=== PATIENT | male | born 1970 | race Caucasian/White ===

== ENCOUNTER 2022-10-14 12:22 | Observation (INO) ==
[2022-10-14 15:05] LABS: SARS COV-2 RNA RAPID NAAT NEGATIVE (NEGATIVE)
[2022-10-14 16:20] VITALS: BMI 30.7
[2022-10-14] MEDS ORDERED: ATROPINE SULFATE PFS IVP PRN (16:21)
[2022-10-14] MEDS ORDERED: TYLENOL PO PRN (16:21)
[2022-10-14] MEDS ORDERED: NITROSTAT SL PRN (16:21)
[2022-10-14] MEDS ORDERED: TORADOL IVP ONE ×2 (16:38→23:03)
[2022-10-14 17:20] LABS: BASOPHILS # (AUTO) 0.1 K/uL (0-0.2); BASOPHILS % (AUTO) 0.4 % (0.0-3.0); EOSINOPHILS # (AUTO) 0.1 K/ul (0.0-0.7); EOSINOPHILS % (AUTO) 0.4 % (0.0-7.0); HEMATOCRIT 37.7 % (42.0-52.0); HEMOGLOBIN 12.7 g/dl (14.0-18.0); IMMATURE GRANULOCYTE # (AUTO) 0.1 (0.0-1.0); IMMATURE GRANULOCYTE % (AUTO) 0.5 % (0.0-5.0); LYMPHOCYTES # (AUTO) 2.2 K/uL (0.60-3.4); LYMPHOCYTES % (AUTO) 14.2 (10.0-50.0); MEAN CORPUSCULAR HEMOGLOBIN 31.3 pg (27.0-31.0); MEAN CORPUSCULAR HGB CONC 33.7 (31.8-35.4); MEAN CORPUSCULAR VOLUME 92.9 fl (80.0-94.0); MONOCYTES # (AUTO) 1.5 K/uL (0.4-2.0); MONOCYTES % (AUTO) 9.5 (0-10); NEUTROPHILS # (AUTO) 11.5 K/ul (2.0-6.9); PLATELET COUNT 370 10^3/uL (140-440); RDW COEFFICIENT OF VARIATION 13.9 % (11.6-14.8); RED BLOOD COUNT 4.06 10^6/ul (4.70-6.10); WHITE BLOOD COUNT 15.33 K/ul (4.2-10.2)
[2022-10-14 17:27] LABS: ALANINE AMINOTRANSFERASE 140.3 U/L (0-50); ALBUMIN 4.41 g/dL (3.5-5.0); ALKALINE PHOSPHATASE 181.2 U/L (38-126); ASPARTATE AMINO TRANSFERASE 78.7 U/L (17-59); BILIRUBIN,TOTAL 0.54 mg/dL (0.2-1.3); BLOOD UREA NITROGEN 13.3 mg/dL (9-20); CHLORIDE 98.5 mmol/L (98-107); CREATINE KINASE 23.3 U/L (55-170); CREATININE 0.62 mg/dL (0.60-1.10); GLUCOSE 103.3 mg/dL (74-106); POTASSIUM 4.09 mmol/L (3.5-5.1); SODIUM 135.1 mmol/L (134.5-145); TOTAL PROTEIN 9.01 g/dL (6.3-8.2)
[2022-10-14 17:43] LABS: TROPONIN I < 0.012 ng/ml (0.0000-0.120)
[2022-10-14 18:45] LABS: ERYTHROCYTE SEDIMENTATION RATE 92 mm/hr (0-15)
--- NOTE | 2022-10-14 19:24 | CT ---
EXAM: CT ANGIOGRAM CHEST HISTORY: Chest pain, shortness of breath COMPARISON: None. FINDINGS: Axial CT angiogram images of the chest with Omnipaque IV contrast. Multiplanar and 3-D reformatted i mages. No thoracic aortic aneurysm or dissection. No PE to the segmental level. Limited evaluation of the subsegmental pulmonary arteries. No finding s of left ventricular strain. Moderate, loculated left pleural effusion with adjacent consolidation. There is and 8.3 x 2.8 cm loc ulated collection with enhancing rim concerning for abscess or empyema see sagittal image 57 and axia l image 82).. Mediastinal lymphadenopathy, possibly reactive. The heart is not enlarged. No pericardial effusion. IMPRESSION: No thoracic aortic aneurysm or dissection. No PE to the segmental level. Limited evaluation of the subsegmental branches. There is a moderate, loculated left pleural effusion with adjacent consolidation concerning for pneum onia. This includes an 8.3 x 2.8 cm loculated collection with an enhancing rim concerning for abscess or em pyema. Please see above description and image numbers. Additional findings as described. All CT scans are performed using dose optimization techniques as appropriate to the performed exam an d include at least one of the following: Automated exposure control, adjustment of the mA and/or kV according t o size, and the use of iterative reconstruction technique.
[2022-10-14 19:44] LABS: ABG O2 HGB 89.4 % (95-100); ABG PH 7.46 (7.35-7.45); BEecf 4.6 (-2.0-3.0); HCO3 28.4 (21-28); MetHb 0 (0-1.5); TCO2 29.6 (19-24); sO2 91.6 % (94-98); tHb 16.3 g/dl (11.7-17.4)
[2022-10-14] MEDS: NICODERM 14 MG TD SCH (21:02)
[2022-10-14 21:33] LABS: BILIRUBIN,URINE 1+ (NEGATIVE); CLARITY,URINE Clear (CLEAR); COLOR,URINE Yellow (YELLOW); GLUCOSE, URINE (UA) Negative (NEGATIVE); KETONES,URINE 1+ (NEGATIVE); LEUKOCYTE ESTERASE ,URINE Negative (NEGATIVE); NITRITE,URINE Negative (NEGATIVE); PH,URINE 5.5 (5-9); PROTEIN,URINE 1+ (NEGATIVE); URINE, BLOOD Negative (NEGATIVE); UROBILINOGEN,URINE 0.2 (0.2)
[2022-10-14 21:41] LABS: URINE RBC, MICROSCOPIC 0-2 (0-2)
[2022-10-14 21:42] LABS: BACTERIA,URINE 1+ (NOT PRESENT); MUCUS,URINE 4+ (NOT PRESENT)
[2022-10-14] MEDS ORDERED: ROCEPHIN 1 GM/50 ML D5W 1 GM/50 ML BAG IV ONE (23:14)
[2022-10-14] MEDS: DOXY-100 100 MG in SODIUM CHLORIDE 100ML 100 ML IV SCH (23:48)
[2022-10-15] MEDS ORDERED: ZOSYN 4.5 GM 4.5 GM in SODIUM CHLORIDE 100ML 100 ML IV SCH ×2
[2022-10-15 00:47] LABS: CREATINE KINASE 21.5 U/L (55-170)
[2022-10-15 01:01] LABS: TROPONIN I < 0.012 ng/ml (0.0000-0.120)
[2022-10-15 05:10] LABS: BASOPHILS % (AUTO) 0.2 % (0.0-3.0); EOSINOPHILS # (AUTO) 0.1 K/ul (0.0-0.7); EOSINOPHILS % (AUTO) 0.8 % (0.0-7.0); HEMOGLOBIN 12.1 g/dl (14.0-18.0); IMMATURE GRANULOCYTE % (AUTO) 0.3 % (0.0-5.0); LYMPHOCYTES # (AUTO) 1.6 K/uL (0.60-3.4); LYMPHOCYTES % (AUTO) 13.5 (10.0-50.0); MEAN CORPUSCULAR HEMOGLOBIN 31.6 pg (27.0-31.0); MEAN CORPUSCULAR HGB CONC 33.6 (31.8-35.4); MONOCYTES # (AUTO) 1.2 K/uL (0.4-2.0); MONOCYTES % (AUTO) 9.7 (0-10); NEUTROPHILS # (AUTO) 9.1 K/ul (2.0-6.9); NEUTROPHILS % (AUTO) 75.5 % (42.2-75.2); PLATELET COUNT 359 10^3/uL (140-440); RDW COEFFICIENT OF VARIATION 14.1 % (11.6-14.8); RED BLOOD COUNT 3.83 10^6/ul (4.70-6.10); WHITE BLOOD COUNT 12.12 K/ul (4.2-10.2)
[2022-10-15] MEDS: ZOSYN 4.5 GM 4.5 GM in SODIUM CHLORIDE 100ML 100 ML IV SCH ×2 (05:11→12:25)
[2022-10-15 05:14] LABS: ALANINE AMINOTRANSFERASE 136.4 U/L (0-50); ALBUMIN 3.81 g/dL (3.5-5.0); ALKALINE PHOSPHATASE 153.6 U/L (38-126); ASPARTATE AMINO TRANSFERASE 90.6 U/L (17-59); BILIRUBIN,TOTAL 0.54 mg/dL (0.2-1.3); BLOOD UREA NITROGEN 13.1 mg/dL (9-20); CALCIUM 9.26 mg/dL (8.4-10.2); CHLORIDE 102.6 mmol/L (98-107); CREATININE 0.51 mg/dL (0.60-1.10); GLUCOSE 116.8 mg/dL (74-106); POTASSIUM 4.25 mmol/L (3.5-5.1); SODIUM 136.1 mmol/L (134.5-145); TOTAL PROTEIN 7.94 g/dL (6.3-8.2)
[2022-10-15] MEDS ORDERED: OMEGA-3 FISH OIL PO SCH (09:00)
[2022-10-15] MEDS: DOXY-100 100 MG in SODIUM CHLORIDE 100ML 100 ML IV SCH (09:49)
[2022-10-15] MEDS: NICODERM 14 MG TD SCH (10:04)
[2022-10-15 10:24] VITALS: BP 127/82; TEMP 97.2
--- NOTE | 2022-10-15 11:16 | PN ---
DATE OF SERVICE: 10/14/22 - ADMIT NOTE SUBJECTIVE: The patient has pleuritic type of pain on the left side. Thorax seems to have come back. There was a request for antibiotics to be called in. Advised patient to come to the office to be checked out. The patient showed up on the morning on 10/14/22. The patient was seen and examined at that time. Complaint was left-sided posterior axillary area mid thoracic pain, more so on deep breathing, more like pleuritic pain. The patient also complained of running maybe a low grade fever starting at night. The patient had no nausea, no vomiting, no PND, no orthopnea, no exertional chest discomfort. No abdominal pain. The patient says his aches and pains are somewhat better. Joint pains are better. He feels tired and fatigued. Investigations done, lab test and at the time he was recorded to have abnormal liver profile and low testosterone level. PFT showed evidence of chronic lung disease and has history of alcohol abuse and heavy smoking. The patient has a history of left pleuritic type of pain with atelectasis on scan with a lung nodule at [facility]. CT of the abdomen showing left uterovesical junction, partial obstruction type of findings for which he was referred to urologist. PHYSICAL EXAMINATION: HEENT: Head normocephalic, atraumatic. Eyes: Extraocular muscles are intact. Pupils are equal, round and reactive to light and accommodation. Ears: No lesions. Nose appeared normal. Throat: No exudate or erythema. NECK: Supple. No JVD, no carotid bruit. No lymphadenopathy or thyromegaly. LUNGS: Decreased breath sounds but good air entry. Clear to auscultation. Percussion note normal. Chest symmetrical. HEART: S1, S2, no S3. Tachycardia. No murmur, no rub. No cyanosis or clubbing. No ascites. Pulses: Dorsalis pedis and posterior tibial pulses +1 to +2 bilaterally. ABDOMEN: Soft. Nontender. Bowel sounds active. No CVA tenderness. No mass felt. EXTREMITIES: No edema. Full range of motion of all extremities, equal. NEUROLOGIC: No focal deficit. Cranial nerves II through XII are grossly intact. No headache. No double vision. SKIN: Not dry. Intact. Turgor - normal. LYMPHATIC: No palpable lymph nodes/no lymphedema. MUSCULOSKELETAL: Normal joints with no swelling. Muscle tone is normal. ASSESSMENT: 1. Pleuritic type of pain. Mild cough with history of smoking with chronic lung disease. 2. History of atelectasis with left pleural effusion, small. 3. History of bronchitis and pleuritic pain nearly 4 to 5 weeks ago for which he was treated with antibiotics and steroids. 4. Alcoholic hepatitis with possibility of hepatic steatosis with fatty liver. 5. Abnormal left ureterovesical junction for which he was referred along with low testosterone level. He got a call from urologist but thought this was not emergent so did not make an appointment and he does not want to take any testosterone supplement and wants his low testosterone to be treated by natural means. 6. History is consistent with sleep apnea. 7. Dyslipidemia. PLAN: 1. Admit this patient for observation with routine telemetry orders which would include serial cardiac markers and serial EKGs with telemetry and oximetry monitoring. 2. Arterial blood gases. 3. Toradol 15 mg IV. 4. Sed rate and CRP. 5. CBC, CMP, sed rate, CRP, T4, TSH. 6. CT of the chest with CT angiogram. 7. Echocardiogram in the morning. 8. Stress echo for evaluation of chest pain and having multiple risk factors for coronary artery disease to rule out any significant coronary artery disease. 9. Lyme, Western Blot test. 10. Erlichia titers. 11. Blood cultures times two. 12. Urinanalysis and urine cultures. 13. Strongly advised to call urologist and make an appointment. 14. D. Dimer. ADDENDUM: The patient already has been referred to manufacturing process engineer for his generalized ache with joint pains, small joints, elevated sed rate and CRP noted as an outpatient nearly 10 days ago along with borderline rheumatoid factor. During this hospitalization, we are going to repeat Sed rate and CRP along with CHECO and rheumatoid factor. The patient is a full code. Counseling for smoking done. The patient already says he has stopped drinking and for the past 3 to 4 weeks he hasn't had any alcohol. The patient is . The patient did not have any rash for the past 6 to 8 weeks. Appetite has been fair. TIME SPENT: More than 35 minutes. Plan and coordination of the patient's care discussed in the presence of nurse. ZIGGY
--- NOTE | 2022-10-15 11:48 | DS ---
DATE OF SERVICE: 10/15/22 FINAL DIAGNOSIS: 1. LEFT LUNG LOCULATED PLEURAL EFFUSION, MODERATE AMOUNT WITH CONSOLIDATION CONCERNING FOR ABSCESS OR EMPHYEMA. 8.3 X 2.8 CM SIZE. 2. LEFT-SIDED PLEURITIC PAIN. 3. CHRONIC LUNG DISEASE WITH RESPIRATORY INSUFFICIENCY, HISTORY OF HEAVY SMOKING. 4. HISTORY OF ALCOHOL ABUSE WITH ABNORMAL LIVER PROFILE. 5. DYSLIPIDEMIA. 6. coronary CALCIFICATION NOTED ON CT SCAN OF CHEST. 7. HYPOGONADISM WITH LOW TESTOSTERONE LEVEL. 8. HISTORY OF JOINT PAINS SEEMS TO HAVE RESOLVED LATELY. 9. HISTORY CONSISTENT WITH SLEEP APNEA. DISCHARGE INSTRUCTIONS: Transferring to [facility], Dr. Montaño. MEDICATIONS AT TIME OF TRANSFER: Zosyn 4.5 gm q.6 Doxycycline 100 mg q.12 Toradol 15 mg q.12 for pleuritic pain Oxygen 2L/cannula/min LABS ON ADMISSION 10/14/22: WBC count 15,000, today is 12,000. Hemoglobin 12.7 with hematocrit of 92. ESR 92 normal up to 18. UA 1+ protein, 1+ ketone, 1+ bilirubin. 1+ bacteria. Creatinine 0.6, BUN 13. Lactic acid 1.00, T4, TSH normal. ALT, AST 140 and 78 respectively. Elevated alkaline phosphatase of 181. ABG: p02 59, pc02 40, pH 7.46 with 91% saturation. Procalcitonin 0.12 borderline elevation. Cardiac markers negative. D. dimer was 4,000. CT angiogram showed no evidence of pulmonary embolism but showed 8.3 x 2.8 cm loculated collection of fluid within the left lung with enhancing rim concerning for abscess and empyema. EKG sinus rhythm. No acute changes. CT scan of the abdomen and pelvis with contrast pending. HOSPITAL COURSE: 52-year-old white male seen in the office with left-sided pleuritic type of pain, low grade fever and sweats at the night for the past 7 to 10 days feeling weak and tired. The patient had lab tests done one week ago which had shown abnormal liver profile likely from alcohol abuse with fatty liver with hepatic steatosis likely and elevated WBC count at the time. The patient had some left- sided pleuritic pain which had practically subsided from what he had had a month ago with bronchitis and left pleuritic pain and was treated at [facility] with CT scan showing small left-sided pleural effusion with atelectasis. In any case, with continued left pleuritic pain, in fact, increasing in intensity with having sweats, he was asked to be hospitalized to which he agreed. CT scan of the chest with CT angiogram as D. dimer was more than 4,000. The patient was ruled out to have pulmonary embolism. CT scan showed possibility of empyema with evidence of consolidation and pneumonia. The patient was started on Zosyn and Doxycycline IV. ABGs were borderline normal with p02 of 59, pc02 40, saturation of 92%. The patient was never in distress. This morning the patient's pain is a lot better, feeling better. The WBC count from 15,000 had gone down to 12,000. He was explained about all these findings and was also called and discussed all the reports. Recommendation is to transfer the patient to pulmonary physician and would be treated for empyema. The patient at time of transfer is stable. TIME SPENT: 70 minutes MTDD
--- NOTE | 2022-10-15 12:38 | US ---
EXAM: ULTRASOUND ABDOMEN COMPLETE. HISTORY: Abnormal liver enzymes COMPARISON: None TECHNIQUE: Abdominal, real time with image documentation: Complete. FINDINGS: Liver: Mildly increased parenchymal echogenicity. No intrahepatic biliary dilatation. Portal venous flow is normal direction. Gallbladder: A few foci of ring down artifact noted. Otherwise normal without shadowing stones or wall thickening . Common bile duct: 0.6 cm. Pancreas: Visualized portions are unremarkable. Spleen: Normal, length 10.9 cm. Right kidney: 11.4 cm length. No hydronephrosis. Left kidney: 12.1 cm in length. Prominent lateral cortex without discrete mass No hydronephros is. Aorta: Visualized portions are normal in caliber. IVC: Visualized portions are normal in caliber. IMPRESSION: 1. Suspect mild hepatic steatosis. 2. Mild adenomyomatosis of the gallbladder wall.
--- NOTE | 2022-10-15 12:43 | HP ---
DATE OF SERVICE: 10/14/22 REASON FOR HOSPITALIZATION: Fever, condition not improving, needing to repeat abdominal and chest CT, cardiac workup. The patient has multiple medical problems that need further checked out. HISTORY OF PRESENT ILLNESS: 52-year-old male direct admit to the hospital. The patient has pleuritic type of pain on the left side. Thorax seems to have come back. There was a request for antibiotics to be called in. Advised patient to come to the office to be checked out. The patient showed up on the morning on 10/14/22. The patient was seen and examined at that time. Complaint was left-sided posterior axillary area mid thoracic pain, more so on deep breathing, more like pleuritic pain. The patient also complained of running maybe a low grade fever starting at night. The patient had no nausea, no vomiting, no PND, no orthopnea, no exertional chest discomfort. No abdominal pain. The patient says his aches and pains are somewhat better. Joint pains are better. He feels tired and fatigued. Investigations done, lab test and at the time he was recorded to have abnormal liver profile and low testosterone level. PFT showed evidence of chronic lung disease and has history of alcohol abuse and heavy smoking. The patient has a history of left pleuritic type of pain with atelectasis on scan with a lung nodule at [facility]. CT of the abdomen showing left uterovesical junction, partial obstruction type of findings for which he was referred to urologist. PAST MEDICAL HISTORY: History of pneumonia. REVIEW OF SYSTEMS: CONSTITUTIONAL: Fatigue, fever. Daytime sleepiness. HEENT: No sinus drainage, no sore throat. RESPIRATORY: No cough, no congestion. CARDIOVASCULAR: No atypical chest pain for coronary artery disease. No angina, CHF symptoms, palpitations or shortness of breath. GASTROINTESTINAL: No melena or abdominal pain. No GERD. GENITOURINARY: No hematuria, no prostatism, no polyuria. CENTRAL OFFICE REPAIRER SUPERVISOR: No blackout, no dizziness, no headache, no double vision. MUSCULOSKELETAL: Reports arthralgias. (Rheumatology referral) ENDOCRINE: Weight loss of 3 lbs since last office visit. SKIN: Not dry, no rash. PSYCHIATRIC: Not anxious, no depression, no suicidal thoughts, no homicidal thoughts. SOCIAL HISTORY: , lives with spouse. Alcohol - yes. Tobacco - yes. No substance abuse. FAMILY HISTORY: Mother of ovarian cancer, COPD. Father lung cancer, prostate cancer. MEDICATIONS: None ALLERGIES: NKDA PHYSICAL EXAMINATION: V/S: Height 5'7", Weight 199 lb, BP 116/60, pulse 110, temperature 99.1, pulse ox 93L on room air. GENERAL APPEARANCE: Oriented times three. HEENT: Normal. NECK: No JVP, no bruits. RESPIRATORY: Lungs are clear. CARDIOVASCULAR: S1, S2, no S3, no murmur. No cyanosis, clubbing. No ascites. GI/ABDOMEN: No tenderness. Bowel sounds are active. EXTREMITIES: edema, pulses +1, equal. CENTRAL OFFICE REPAIRER SUPERVISOR: Deep tendon reflexes, sensory, motor and gait all normal. ASSESSMENT: 1. Rib pain, left side. 2. Fatigue. 3. Low grade fever. 4. Shortness of breath. 5. Decreased appetite. 6. Joint pain. 7. COPD. 8. Elevated liver enzymes. 9. Chronic lung disease. 10. Acute bronchiolitis. 11. Sleep apnea. 12. Hematuria. 13. Umbilical hernia. 14. Smoker. PLAN: 1. Admit this patient for observation with routine telemetry orders which would include serial cardiac markers and serial EKGs with telemetry and oximetry monitoring. 2. Arterial blood gases. 3. Toradol 15 mg IV. 4. Sed rate and CRP. 5. CBC, CMP, sed rate, CRP, T4, TSH. 6. CT of the chest with CT angiogram. 7. Echocardiogram in the morning. 8. Stress echo for evaluation of chest pain and having multiple risk factors for coronary artery disease to rule out any significant coronary artery disease. 9. Lyme, Western Blot test. 10. Ehrlichia titers. 11. Blood cultures times two. 12. Urinalysis and urine cultures. 13. Strongly advised to call urologist and make an appointment. 14. D. Dimer. 15. The patient is a full code. TIME SPENT: More than 75 minutes. ZIGGY
[2022-10-16 04:19] LABS: RHEUMATOID ARTHRITIS FACTOR 17.6 IU/mL (<14.0)
--- NOTE | 2022-10-18 14:07 | ECHO2D ---
Date of Exam: 10/15/2022 Ordering Physician: DR. CECY TAYLOR Room #: 110 Reason for Echo: CHEST PAIN, SOB, LEFT PLEURAL EFFUSION, LEFT RIB PAIN, COPD, M-Mode Normal Adult Results LV Dimensions Normal Adult Results AoV Opening excursions >1.6 >1.6 LVEDD-base- 3.5-5.8 4.7 Ao root dimensions 2.0-3.7 3.4 LVESD-base- 3.1-4.6 L. Atrium dimensions 1.9-3.8 4.1 Post. Wall thickness 0.8-1.1 1.1 IV septum (thickness) 0.7-1.2 1.2 Post. Wall excursion 0.72-1.3 NORMAL Septal motion NORMAL Systolic motion R. Ventricular cavity 1.5-2.0 4.0 LVEF 60% 64% Paradoxical septal wall motion NORMAL 2-D : ENLARGED LEFT ATRIAL AND RIGHT VENTRICLE CAVITIES--NORMAL VALVES--NORMAL LEFT VENTRICLE CAVITY--NORMAL LEFT VENTRICLE CONTRACTILITY--NO EFFUSION, NO THROMBUS M-MODE: MV: NORMAL AV: NORMAL TV: NORMAL PV: CHAMBER SIZE: ENLARGED LEFT ATRIAL AND RIGHT VENTRICLE CAVITIES WALL MOTION: NORMAL PERICARDIUM: NORMAL INTERPRETATION: 1. BORDERLINE LEFT VENTRICLE HYPERTROPHY WITH ENLARGED LEFT ATRIAL CAVITY 2. ENLARGED RIGHT VENTRICLE CAVITIES 3. NORMAL VALVES 4. NORMAL LEFT VENTRICLE CONTRACTILITY--NORMAL LEFT VENTRICLE SIZE MTDD
[2022-10-18 14:10] LABS: ANA DIRECT Negative (Negative)
--- NOTE | 2022-10-18 16:19 | PN ---
CODING FOR BILLING 10/14/22 ADMISSION DAY LEVEL 5 10/15/22 FINAL DAY EXTENSIVE - ON OBSERVATION BUT SHOULD BE A REGULAR ADMIT MTDD
[2022-10-20 02:14] LABS: IGG P18 AB Absent (.); IGG P23 AB Absent (.); IGG P28 AB Absent (.); IGG P30 AB Absent (.); IGG P39 AB Absent (.); IGG P41 AB Absent (.); IGG P45 AB Absent (.); IGG P58 AB Absent (.); IGG P66 AB Absent (.); IGG P93 AB Absent (.); IGM P23 AB Absent (.); IGM P39 AB Absent (.); IGM P41 AB Absent (.); LYME IGG WB INTERP Negative (.); LYME IGM WB INTERP Negative (.)
== END 2022-10-15 13:40 | disposition short-term general hospital (02) ==
LOC: MEDSURG A 12:22 → LAB 12:22
PROVIDERS: ADMIT Internal Medicine; ATTEND Internal Medicine
DX: R07.82 Intercostal pain; K70.10 Alcoholic hepatitis without ascites; J40 Bronchitis, not specified as acute or chronic; R07.81 Pleurodynia; Z77.120 Contact with and (suspected) exposure to mold (toxic); J98.11 Atelectasis; K42.9 Umbilical hernia without obstruction or gangrene; Z20.822 Contact with and (suspected) exposure to COVID-19; Z87.09 Personal history of other diseases of the respiratory system; R50.9 Fever, unspecified; J96.20 Acute and chronic respiratory failure, unspecified whether with hypoxia or hypercapnia; R74.8 Abnormal levels of other serum enzymes; J98.4 Other disorders of lung; R63.0 Anorexia; F17.210 Nicotine dependence, cigarettes, uncomplicated; R31.9 Hematuria, unspecified; R06.02 Shortness of breath; G47.30 Sleep apnea, unspecified; R00.0 Tachycardia, unspecified; N13.0 Hydronephrosis with ureteropelvic junction obstruction; J44.9 Chronic obstructive pulmonary disease, unspecified; E78.5 Hyperlipidemia, unspecified; F10.10 Alcohol abuse, uncomplicated; I25.84 Coronary atherosclerosis due to calcified coronary lesion; J90 Pleural effusion, not elsewhere classified; R94.5 Abnormal results of liver function studies; M25.50 Pain in unspecified joint